=== PATIENT | male | born 1960 | race Caucasian/White ===

== ENCOUNTER 2020-11-28 14:11 | Emergency (ER) | payer OTHER, SELFPAY ==
[2020-11-28 14:12] VITALS: BP 198/100; PULSE 80; RESP 18; TEMP 36.6; O2SAT 98; BMI 29.7
[2020-11-28 14:15] VITALS: BP 198/100; PULSE 81; RESP 16; O2SAT 99
--- NOTE | 2020-11-28 14:41 | CT_ITS ---
STUDY: CT BRAIN WITHOUT CONTRAST REASON FOR EXAM: Male, 60 years old. headache RADIATION DOSAGE (If Supplied By Facility): CTDIvol = ( 44.99 ) mGy, DLP = ( 796.11 ) mGycm TECHNIQUE: Transaxial CT imaging of the brain was performed without administration of intravenous contrast material. Individualized dose optimization techniques were used for this CT. COMPARISON: No relevant priors. FINDINGS: Normal soft tissue structures. Normal calvarium. Normal size ventricles and extra-axial spaces for the patient''s age. Normal white matter tracts of the cerebral hemispheres. Normal basal ganglia and thalami. Normal brainstem. Normal cerebellum. There is no intracranial hemorrhage. There are no findings of an acute ischemic infarction. Normal visualized paranasal sinuses. CT/Brain/Head without Contrast IMPRESSION: No acute intracranial hemorrhage or mass effect. Electronically Signed: Bobby Conn MD ([place]) at 15:23 EDT , Service support ,
[2020-11-28 14:59] LABS: Absolute Lymphocyte Count 0.97 X10^3/uL (0.83-4.51); Absolute Neutrophil Count 4.8 X10^3/uL (2.0-7.7); Basophil# 0.05 X10^3/uL; Basophil% 0.8 % (0-1); Eosinophil# 0.03 X10^3/uL; Eosinophils% 0.5 % (0-5); Hematocrit 40.5 % (40-54); Hemoglobin 14.4 g/dL (13.0-16.5); Lymphocyte # 0.97 X10^3/ul (0.83-4.51); Lymphocyte % 15.5 % (19-41); Mean Corp Hgb Conc 35.6 g/dL (32-36); Mean Corpuscular Hgb 34.7 pg (27.0-32.0); Mean Corpuscular Volume 97.6 fL (80-94); Mean Platelet Vol. 10.6 fl (6.2-12.0); Monocyte# 0.37 X10^3/uL; Monocyte% 5.9 % (0-10); NRBC Flagged by Analyzer 0 % (0-5); Neutrophil % 76.7 % (47-70); Platelet Count 203 K/mm3 (150-450); RBC Distribution Width CV 12.8 % (11.6-14.6); RBC Distribution Width SD 45.1 fl (35.1-43.9); Red Blood Count 4.15 M/mm3 (4.6-6.2); White Blood Count 6.3 K/mm3 (4.4-11.0)
[2020-11-28 15:18] LABS: Anion Gap 6 (5-15); BUN 15 mg/dL (7-18); BUN/Creat Ratio 19.4 RATIO (10-20); Calcium,Total 8.8 mg/dL (8.5-10.1); Chloride 109 mmol/L (98-107); Creatinine, Serum 0.77 mg/dL (0.70-1.30); EST Glomerular Filtration Rate 109 mL/min (>60); Est Glom Filt Rate - Afr Amer 132 mL/min (>60); Estimated Creatinine Clearance 111.98 ml/min; Glucose 127 mg/dL (74-106); Potassium 4.1 mmol/L (3.5-5.1); Sodium Level 141 mmol/L (136-145)
--- NOTE | 2020-11-28 15:46 | EX.ED.DYSGE1 ---
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 PFSH PFSH Home Medications folic acid 2 mg PO DAILY 11/28/20 [History Last Taken Unknown] hydroxychloroquine 200 mg PO BID 11/28/20 [History Last Taken Unknown] meloxicam 15 mg PO DAILY 11/28/20 [History Last Taken Unknown] methotrexate sodium 20 mg PO QWEEK 11/28/20 [History Last Taken Unknown] metoprolol tartrate [Lopressor] 50 mg PO BID #60 tab 11/28/20 [Rx Last Taken Unknown] oxycodone-acetaminophen [Percocet] 1 tab PO Q6H PRN 3 Days #12 tab 11/28/20 [Rx Last Taken Unknown] prednisone 10 mg PO DAILY 11/28/20 [History Last Taken Unknown] valacyclovir 1,000 mg PO TID 7 Days #21 tab 11/28/20 [Rx Last Taken Unknown] Allergy/AdvReac Type Severity Reaction Status Date / Time No Known Allergies Allergy Verified 11/28/20 14:12 Social History Smoking Status: Never smoker ROS ROS ED Constitutional Constitutional ED: Reports systems reviewed and no addt'l complaints, except as documented Eyes Eyes: Reports systems reviewed and no addt'l complaints, except as documented ENT ENT ED: Reports systems reviewed and no addt'l complaints, except as documented Cardiovascular Cardiovascular: Reports systems reviewed and no addt'l complaints, except as documented Respiratory/Chest Respiratory/Chest: Reports systems reviewed and no addt'l complaints, except as documented Gastrointestinal Gastrointestinal: Reports systems reviewed and no addt'l complaints, except as documented Musculoskeletal Musculoskeletal: Reports systems reviewed and no addt'l complaints, except as documented Integumentary Reports rash Neurologic Neurologic: Reports headache(s) Psychiatric Psychiatric: Reports systems reviewed and no addt'l complaints, except as documented Endocrine Endocrinology: Reports systems reviewed and no addt'l complaints, except as documented Hematologic/Lymphatic Hematologic/Lymphatic: Reports systems reviewed and no addt'l complaints, except as documented Allergic/Immunologic Allergic/Immunologic ED: Reports systems reviewed and no addt'l complaints, except as documented EXAM Physical Exam Const Vital Signs: 11/28/20 14:12 11/28/20 14:15 Temperature 97.8 F Temperature Source Temporal Pulse Rate 80 81 Respiratory Rate 18 16 Blood Pressure 198/100 H 198/100 H Blood Pressure Mean 132 132 Pulse Ox 98 99 Oxygen Delivery Method Room Air Room Air Positive well nourished and well developed General Appearance ED: active, cooperative and well developed HEENT Reports normocephalic and head/scalp atraumatic normocephalic and normal to inspection Nose: external nose normal Eyes PERRL, EOMs intact bilaterally, conjunctivae normal, no scleral icterus and normal visual melgar by confrontation Neck full ROM Resp normal respiratory effort Cardio regular rate Extremity normal to inspection Neuro oriented x3, CN's II-XII intact bilaterally, no focal motor deficits and no sensory deficits noted Neuro Narrative: NIH stroke scale zero Psych mental status grossly normal and thought process normal Skin Skin Narrative: Rash to his right side face, eyebrow, forehead MDM MDM MDM Narrative Medical decision making narrative: Patient has a right-sided facial rash concerning for shingles. There does not appear to be any ocular involvement, but it is in the concerning dermatome. This was discussed with ophthalmology. Patient will be treated with valacyclovir and will follow-up on Monday. He has a headache which I suspect is likely related to the rash. CT was negative. Labs are reassuring. He was hypertensive. On repeat evaluation his blood pressure was 167. He was previously on blood pressure medication, but his doctor was concerned it would interact with his medicines for rheumatoid arthritis. He normally runs in the 140s and 150s. He continued to have some elevated blood pressures so we did start him on medicine for hypertension, Lopressor 50 mg twice a day. This medication had the least amount of interactions with his current medications, and no concerning interactions. He will hold his methotrexate dose tomorrow and call his physician on Monday for follow-up. Return for any new or worsening issues. Lab Data Attestation: I reviewed the patient's lab results. Labs: Laboratory Results - last 24 hr 11/28/20 11/28/20 14:50 14:50 WBC 6.3 RBC 4.15 L Hgb 14.4 Hct 40.5 MCV 97.6 H MCH 34.7 H MCHC 35.6 RDW Std Deviation 45.1 H RDW Coeff of Krishan 12.8 Plt Count 203 MPV 10.6 Immature Gran % (Auto) 0.600 Neut % (Auto) 76.7 H Lymph % (Auto) 15.5 L [place] % (Auto) 5.9 Eos % (Auto) 0.5 Baso % (Auto) 0.8 Absolute Neuts (auto) 4.8 Absolute Lymphs (auto) 0.97 Nucleated RBC % 0 Sodium 141 Potassium 4.1 Chloride 109 H Carbon Dioxide 26.0 Anion Gap 6 BUN 15 Creatinine 0.77 Estim Creat Clear Calc 111.98 Est GFR (MDRD) Af Amer 132 Est GFR (MDRD) Non-Af 109 BUN/Creatinine Ratio 19.4 Glucose 127 H Calcium 8.8 Radiography Diagnostic Testing: Radiology Impression Brain CT 11/28/20 14:41 IMPRESSION: No acute intracranial hemorrhage or mass effect. Electronically Signed: Bobby Conn MD ([place]) at 15:23 EDT , Service support , Discharge Plan Triage Chief Complaint: Hypertension ED Provider: Greg Kolb Dx/Rx/DC Orders Clinical Impression: Shingles, Hypertension Instructions: ED Shingles (Herpes Zoster) Prescriptions: New valacyclovir 1 gram tablet 1,000 mg PO TID 7 Days Qty: 21 RF: 0 metoprolol tartrate [Lopressor] 50 mg tablet 50 mg PO BID Qty: 60 RF: 0 oxycodone-acetaminophen [Percocet] 5-325 mg tablet 1 tab PO Q6H PRN (Reason: pain) 3 Days Qty: 12 RF: 0 No Action prednisone 10 mg tablet 10 mg PO DAILY RF: 0 meloxicam 15 mg tablet 15 mg PO DAILY RF: 0 methotrexate sodium 2.5 mg tablet 20 mg PO QWEEK RF: 0 folic acid 1 mg tablet 2 mg PO DAILY RF: 0 hydroxychloroquine 200 mg tablet 200 mg PO BID RF: 0 Primary Care Provider: Eris Velez Referrals: Kirsten Holt MD [STAFF PHYSICIAN] - (monday) Eris Velez MD [Primary Care Provider] - Disposition Disposition: Home, Self Care
[2020-11-28 16:16] VITALS: BP 176/92; PULSE 71; RESP 15; O2SAT 96
== END 2020-11-28 16:17 | disposition home or self-care (01) ==
PROVIDERS: Emergency Provider Emergency Medicine; PCP Family Medicine
DX: B02.9 Zoster without complications (principal); I10 Essential (primary) hypertension; Z79.899 Other long term (current) drug therapy
CPT/HCPCS: 70450; 80048; 85025; 99283; A4216